=== PATIENT | female | born 1990 | race Caucasian/White ===

== ENCOUNTER → 2016-11-23 | Outpatient (REF) | LOC: WSOH 12:43 → WSPT 14:00 | DX: Z02.1 Encounter for pre-employment examination (principal) ==

== ENCOUNTER → 2016-12-12 | Outpatient (REF) | LOC: WSOH 09:56 | DX: Z11.1 Encounter for screening for respiratory tuberculosis (principal) ==

== ENCOUNTER 2019-11-26 13:26 | Outpatient (RCR) | payer OTHER | END 2020-02-23 | disposition home or self-care (01) | LOC: WSOH | DX: Z77.21 Contact with and (suspected) exposure to potentially hazardous body fluids (principal); O26.893 Other specified pregnancy related conditions, third trimester; W46.0XXA Contact with hypodermic needle, initial encounter; Z87.891 Personal history of nicotine dependence; Z3A.29 29 weeks gestation of pregnancy; Y99.0 Civilian activity done for income or pay ==